=== PATIENT | female | born 1975 | race American Indian/Alaskan Native ===

== ENCOUNTER 2016-12-14 02:44 | Emergency (ER) | payer MEDICAID ==
[2016-12-14 03:57] VITALS: BP 166/104
[2016-12-14] MEDS ORDERED: TORADOL IM ONE (05:23)
--- NOTE | 2016-12-14 05:43 | Emergency Department Report ---
ED ENT HPI - General Chief complaint: Earache Stated complaint: LEFT EAR PAIN Time Seen by Provider: 12/14/16 04:48 Source: patient Mode of arrival: Ambulatory Limitations: No Limitations - History of Present Illness Initial comments: 41 y/o female complain of left earache x 3 hour .pt state she felt like something was in ear and attempt to get out with q-tip. MD complaint: ear pain Severity scale (0 -10): 7 Quality: aching Consistency: constant Improves with: none Worsens with: none - Related Data Home Medications Medication Instructions Recorded Confirmed Last Taken Cholecalciferol (Vitamin D3) 5,000 unit PO DAILY 05/04/15 07/04/15 07/03/15 10: 30 [Vitamin D] Cyanocobalamin (Vitamin B-12) 1,000 mcg PO DAILY 05/04/15 07/04/15 07/03/15 10: 30 [Vitamin B-12] Losartan [Cozaar] 25 mg PO QDAY 05/04/15 07/04/15 07/03/15 10:30 Previous Rx's Medication Instructions Recorded Last Taken Type Ibuprofen [Motrin 800 MG tab] 800 mg PO Q8HR PRN #30 tablet 03/22/16 Unknown Rx Azithromycin [Zithromax] 250 mg PO DAILY #6 tablet 12/14/16 Unknown Rx Ibuprofen [Motrin] 800 mg PO Q8HR PRN #30 tablet 12/14/16 Unknown Rx Allergies Allergy/AdvReac Type Severity Reaction Status Date / Time epinephrine AdvReac tachycardia Verified 05/09/15 09:30 Penicillins AdvReac Hives Verified 05/04/15 10:50 ED Dental HPI - General Chief complaint: Earache Stated complaint: LEFT EAR PAIN Time Seen by Provider: 12/14/16 04:48 Source: patient Mode of arrival: Ambulatory Limitations: No Limitations - Related Data Home Medications Medication Instructions Recorded Confirmed Last Taken Cholecalciferol (Vitamin D3) 5,000 unit PO DAILY 05/04/15 07/04/15 07/03/15 10: 30 [Vitamin D] Cyanocobalamin (Vitamin B-12) 1,000 mcg PO DAILY 05/04/15 07/04/15 07/03/15 10: 30 [Vitamin B-12] Losartan [Cozaar] 25 mg PO QDAY 05/04/15 07/04/15 07/03/15 10:30 Previous Rx's Medication Instructions Recorded Last Taken Type Ibuprofen [Motrin 800 MG tab] 800 mg PO Q8HR PRN #30 tablet 03/22/16 Unknown Rx Azithromycin [Zithromax] 250 mg PO DAILY #6 tablet 12/14/16 Unknown Rx Ibuprofen [Motrin] 800 mg PO Q8HR PRN #30 tablet 12/14/16 Unknown Rx Allergies Allergy/AdvReac Type Severity Reaction Status Date / Time epinephrine AdvReac tachycardia Verified 05/09/15 09:30 Penicillins AdvReac Hives Verified 05/04/15 10:50 ED Review of Systems ROS: Stated complaint: LEFT EAR PAIN Other details as noted in HPI Constitutional: denies: chills, fever Eyes: denies: eye pain, eye discharge, vision change ENT: ear pain. denies: throat pain Respiratory: denies: cough, shortness of breath, wheezing Cardiovascular: denies: chest pain, palpitations Endocrine: no symptoms reported Gastrointestinal: denies: abdominal pain, nausea, diarrhea Genitourinary: denies: urgency, dysuria, discharge Musculoskeletal: denies: back pain, joint swelling, arthralgia Skin: denies: rash, lesions Neurological: denies: headache, weakness, paresthesias Psychiatric: denies: anxiety, depression Hematological/Lymphatic: denies: easy bleeding, easy bruising ED Past Medical Hx - Past Medical History Previous Medical History?: Yes Hx Hypertension: Yes (Denies Chest pain; BP controlled w/ meds) Hx GERD: Yes ( OTC MED) Hx Arthritis: Yes (RIGHT KNEE) Hx Asthma: Yes (Childhood only) - Surgical History Past Surgical History?: Yes Hx Breast Surgery: Yes ( 05/02) - Social History Smoking Status: Never Smoker Substance Use Type: None - Medications Home Medications: Home Medications Medication Instructions Recorded Confirmed Last Taken Type Cholecalciferol (Vitamin D3) 5,000 unit PO DAILY 05/04/15 07/04/15 07/03/15 10: 30 History [Vitamin D] Cyanocobalamin (Vitamin B-12) 1,000 mcg PO DAILY 05/04/15 07/04/15 07/03/15 10: 30 History [Vitamin B-12] Losartan [Cozaar] 25 mg PO QDAY 05/04/15 07/04/15 07/03/15 10:30 History Ibuprofen [Motrin 800 MG tab] 800 mg PO Q8HR PRN #30 tablet 03/22/16 Unknown Rx Azithromycin [Zithromax] 250 mg PO DAILY #6 tablet 12/14/16 Unknown Rx Ibuprofen [Motrin] 800 mg PO Q8HR PRN #30 tablet 12/14/16 Unknown Rx ED Physical Exam - General Limitations: No Limitations General appearance: alert, in no apparent distress - Head Head exam: Present: atraumatic, normocephalic - Eye Eye exam: Present: normal appearance, PERRL - ENT ENT exam: Present: mucous membranes moist - Expanded ENT Exam Expanded TM/Canal exam: Erythema: Left TM, Bulging: Left TM, Mastoid Tenderness: Right TM , Left TM (frontal ) Throat exam: Positive: tonsillar erythema, other (post nasal drip ) - Neck Neck exam: Present: normal inspection - Respiratory Respiratory exam: Present: normal lung sounds bilaterally. Absent: respiratory distress, wheezes - Cardiovascular Cardiovascular Exam: Present: regular rate, normal rhythm. Absent: systolic murmur, diastolic murmur, rubs, gallop - GI/Abdominal GI/Abdominal exam: Present: soft, normal bowel sounds - Extremities Exam Extremities exam: Present: normal inspection, full ROM - Back Exam Back exam: Present: normal inspection - Neurological Exam Neurological exam: Present: alert, oriented X3 - Psychiatric Psychiatric exam: Present: normal affect, normal mood - Skin Skin exam: Present: warm, dry, intact, normal color. Absent: rash ED Course Vital Signs 12/14/16 03:54 Temperature 98.1 F Pulse Rate 75 Respiratory 20 Rate Blood Pressure 166/104 O2 Sat by Pulse 100 Oximetry ED Medical Decision Making - Medical Decision Making Sinusitis Left otitis media Critical care attestation.: If time is entered above; I have spent that time in minutes in the direct care of this critically ill patient, excluding procedure time. ED Disposition Clinical Impression: Sinusitis Qualifiers: Sinusitis location: frontal Chronicity: acute Recurrence: recurrent Qualified Code(s): J01.11 - Acute recurrent frontal sinusitis Otitis media Qualifiers: Otitis media type: unspecified Laterality: left Chronicity: unspecified Qualified Code(s): H66.92 - Otitis media, unspecified, left ear Disposition: DISCHARGED TO HOME OR SELFCARE Is pt being admited?: No Does the pt Need Aspirin: No Condition: Stable Instructions: Otitis Media (ED), Sinusitis (ED) Prescriptions: Ibuprofen [Motrin] 800 mg PO Q8HR PRN #30 tablet PRN Reason: Pain Azithromycin [Zithromax] 250 mg PO DAILY #6 tablet Forms: Work/School Release Form(ED) Time of Disposition: 05:50
== END 2016-12-14 05:59 | disposition home or self-care (01) ==
LOC: ED 02:44
DX: J01.11 Acute recurrent frontal sinusitis (principal); H66.92 Otitis media, unspecified, left ear; I10 Essential (primary) hypertension; K21.9 Gastro-esophageal reflux disease without esophagitis; M19.90 Unspecified osteoarthritis, unspecified site; G43.909 Migraine, unspecified, not intractable, without status migrainosus; Z88.0 Allergy status to penicillin; Z88.8 Allergy status to other drugs, medicaments and biological substances
CPT/HCPCS: 96372; 99282; J1885

== ENCOUNTER 2019-07-30 08:52 | Outpatient (CLI) | payer OTHER ==
--- NOTE | 2019-07-30 09:40 | XRay Report ---
CERVICAL SPINE HISTORY: Neck pain. COMPARISON: None. TECHNIQUE: 3 views of the cervical spine obtained. FINDINGS: Vertebrae: Normal alignment. No fracture or significant abnormality. Disc Spaces:Mild degenerative disc disease with a small anterior osteophyte and minimal disc space na rrowing at C5-6. Facet Joints:No significant abnormality. Prevertebral Soft Tissues:No significant abnormality. Additional findings: None. IMPRESSION: 1. Mild degenerative disc disease at C5-6. 2. No acute findings. Signer Name: George Haynes MD Signed: 07/30/2019 9:35 AM Workstation Name: [id number]
== END 2019-07-30 08:53 | disposition home or self-care (01) ==
LOC: XRAY 08:52
PROVIDERS: ATTEND Internal Medicine
DX: M50.322 Other cervical disc degeneration at C5-C6 level (principal); M48.02 Spinal stenosis, cervical region
CPT/HCPCS: 72040

== ENCOUNTER 2022-07-05 11:53 | Outpatient (CLI) | payer OTHER ==
--- NOTE | 2022-07-05 15:05 | XRay Report ---
BILATERAL ANKLES 4 VIEWS INDICATION / CLINICAL INFORMATION: Z02.71 ENCOUNTER FOR DISABILITY DETERMINATION COMPARISON: None available. FINDINGS: BONES and JOINT(S): No acute fracture or subluxation. There are bilateral calcaneal and these of figh ts with symmetric moderate degenerative arthrosis of the ankles and mild degenerative arthrosis of th e mid feet. SOFT TISSUES: Mild edema is noted along each ankle. No other significant abnormality. ADDITIONAL FINDINGS: None. IMPRESSION: Degenerative changes of the ankles as above with mild bilateral ankle edema. BILATERAL KNEES 4 VIEWS INDICATION / CLINICAL INFORMATION: Z02.71 ENCOUNTER FOR DISABILITY DETERMINATION COMPARISON: None available. FINDINGS: BONES and JOINT(S): No acute fracture or subluxation. There is symmetric mild bilateral tricompartmen kamaljit osteoarthritis. SOFT TISSUES: Mild edema is noted anteriorly along the knees. No other significant abnormality. ADDITIONAL FINDINGS: None. IMPRESSION: Mild osteoarthritis and edema of the knees. Signer Name: Daniel Gardner MD Signed: 07/05/2022 3:01 PM Workstation Name: [id number]
== END 2022-07-05 11:54 | disposition home or self-care (01) ==
LOC: XRAY 11:53
PROVIDERS: ATTEND Internal Medicine
DX: Z02.71 Encounter for disability determination (principal); M19.072 Primary osteoarthritis, left ankle and foot; M19.071 Primary osteoarthritis, right ankle and foot; M25.472 Effusion, left ankle; M25.471 Effusion, right ankle